=== PATIENT | male | born 1980 | race Two or more races ===

== ENCOUNTER 2021-03-04 00:57 | Emergency (ER) | payer OTHER ==
[~2021-03-04] VITALS: Ht 177.8 cm; Wt 102.9 kg
--- NOTE | 2021-03-04 01:03 | PHYS DOC ---
Past History Past Medical History: No Pertinent History Additional Past Surgical Histo: R shoulder, R elbow, L achilles Smoking: Non-smoker Alcohol Use: None Drug Use: None General Adult EDM: Chief Complaint: COVID HPI: HPI: 40-year-old male who was recently diagnosed with COVID-19 02/27/2021 presents with several day history of viral type symptoms including generalized malaise, body aches, and cough. Patient reports he has problems sleeping at night due to his discomfort. Patient reports family members also with COVID-19. Patient does report an episode of vomiting and some diarrhea. Patient reports has problems sleeping at night secondary to discomfort. Patient has been using over -the-counter ibuprofen and Tylenol for pain and discomfort. Reports currently has not been helping. Denies shortness of air. Review of Systems: Review of Systems: Constitutional: Denies fever; reports generalized malaise, body aches, and fatigue Eyes: Denies redness or eye pain HENT: Reports nasal congestion; denies sore throat Respiratory: Reports cough; denies shortness of breath Cardiovascular: Denies chest pain or palpitations GI: Denies abdominal pain; reports nausea, vomiting, and diarrhea : Denies dysuria or hematuria Musculoskeletal: Denies back pain or joint pain Integument: Denies rash or skin lesions Neurologic: Denies headache, focal weakness or sensory changes Complete systems were reviewed and found to be within normal limits, except as documented in this note. Physical Exam: PE: Constitutional: Well developed, well nourished, no acute distress, non-toxic appearance HENT: Normocephalic, atraumatic, TMs bilaterally clear, sinus congestion noted Eyes: Conjunctiva normal, no discharge Neck: Normal range of motion, supple, no meningeal signs Lungs & Thorax: No respiratory distress, equal chest rise and fall Abdomen: Soft, no tenderness, no guarding/rebound tenderness/distention Skin: Warm, dry, no erythema, no rash Extremities: Bilateral lower extremity tenderness without swelling or edema, ROM intact Neurologic: Alert and oriented X 3, normal motor function, normal sensory function, no focal deficits noted Psychologic: Affect normal, judgment normal EKG: EKG: [] Radiology/Procedures: Radiology/Procedures: PROCEDURE: CHEST AP ONLY XR CHEST 1V INDICATION: cough COMPARISON STUDY: None. FINDINGS: Lungs: Normal lung volume. No pulmonary mass or consolidation. The tracheobronchial tree and hilar structures are normal. Pleura: No pleural effusion or pneumothorax. Heart and Mediastinum: The cardiomediastinal silhouette is normal. The great vessels of the thorax are normal. IMPRESSION: No acute cardiopulmonary process. Electronically signed by: Robel Simons MD (03/04/2021 1:45 AM) [facility] Heart Score: C/O Chest Pain: N/A Course & Med Decision Making: Course & Med Decision Making Pertinent Imaging studies reviewed. (See chart for details) Patient with recent diagnosis of COVID-19 presents with symptoms consistent for his diagnosis. O2 sat stable. Patient is afebrile. Symptomatic treatment provided with oral steroid. Chest x-ray without acute finding. Will prescribe symptomatic treatment. Patient stable for discharge with outpatient follow-up with PCP. Discussed findings and plan with patient, who acknowledges understanding and agreement. COVID-19 CRITERIA: The patient was evaluated during the global COVID-19 pandemic, and that diagnosis was suspected/considered upon their initial presentation. Their evaluation, treatment and testing was consistent with current guidelines for patients who present with complaints or symptoms that may be related to COVID-19. Dragon Disclaimer: [employer] Disclaimer: This electronic medical record was generated, in whole or in part, using a voice recognition dictation system. Departure Departure: Impression: Primary Impression: COVID-19 Disposition: 01 HOME / SELF CARE / HOMELESS Condition: STABLE Referrals: NON,STAFF (PCP) Patient Instructions: Incentive Spirometer, Viral Syndrome Additional Instructions: You have been tested for or diagnosed with COVID-19. It is an infection caused by a new type of coronavirus. COVID-19 will cause cold-like or mild flu symptoms in most. It can cause more severe symptoms like problems breathing in some. There is no treatment for COVID-19. The body will clear the infection over time. Self-care will help to ease discomfort. Steps to Take: Self-Care Rest as needed. Healthy habits may help you feel better. Steps include: Choose healthy foods including fruits and vegetables. Drink water throughout the day. Get plenty of sleep each night. If you smoke, try to quit. It may ease breathing. Avoid alcohol. Keep Others Healthy The virus can spread to others. Droplets are released every time you sneeze or cough. The droplets can get into the mouth, nose, or eyes of people near you and lead to infection. To lower the chances of spreading COVID-19 to others: Stay at home until your doctor has said it is safe to leave. If you tested positive this will mean staying isolated until both of the following are true: At least 7 days have passed since the start of illness. You are free of fever for at least 72 hours without the use of medicine. During this time: - Avoid public areas, events, or transportation. Do not return to work or school until your doctor has said it is safe to do so. - Call ahead if you need to go to a medical center. Let them know you may have COVID-19. It will help them guide you where to go. They may also ask you to wear a facemask when you come to the office. - If you call for emergency medical services, let them know you may have COVID- 19. While at home: - Try to avoid close contact with others. Stay about 6 feet away. - If possible, spend most of your time in a separate room from others. - Use a face mask if you will be in close contact with others such as sharing a room or vehicle. - Have someone wipe down common surfaces in the home. Use household faculty neuropsychologist every day on areas like doorknobs, counters, or sinks. - Cough or sneeze into a tissue. Throw the tissue away right after use. If a tissue is not available, cough or sneeze into your elbow. - Wash your hands often. Wash them after sneezing or coughing. Use soap and water and wash for at least 20 seconds. Alcohol based hand card cleaner can be used if soap and water is not available. - Do not prepare food for others. Avoid sharing personal items like forks, spoons, or toothbrushes. - Avoid close contact with pets while you are sick. There is no evidence of the virus passing to pets. This is a safety step until more is known about this virus. Isolation can be frustrating. Social interaction can help. Keep in touch with friends and family through phone and tech options. You can still interact with others in your home, just keep a safe distance of about 6 feet. Follow-up: Your doctors office will check in with you to see if there are any changes in your health. You may be asked to keep track of symptoms to share with them. They will also let you know when you are clear to be in public again. Problems to Look Out For: Contact your doctor if your recovery is not going as you expect. Get emergency care if you have problems such as: - Trouble breathing - Nonstop chest pain or pressure - Changes in awareness, confusion, or problems waking - Lips or face have bluish color - Worsening of symptoms If you think you have an emergency, call for emergency medical services right away. As taken from [facility] Codeine Phosphate/Guaifenesin (Guaifen-Codeine 200-20 mg/10Ml) 10 Ml Liquid 10 ML PO Q6HRS PRN for COUGH, #150 LIQUID Prov: AMADEO DA SILVA DO 03/04/21 Benzonatate (TESSALON PERLE) 100 Mg Capsule 100 MG PO TID PRN PRN for COUGH, #30 CAP Prov: AMADEO DA SILVA DO 03/04/21 COVID-19 Assessment COVID-19 Patient Risks: Age 65 or older: No Sign of co-morbidity: No Exp to person + for COVID: Yes Exp to PUI: No Travel from affected area: No Lower respiratory symptoms: Yes Fever: No Other: Yes PPE Use: Full PPE with N95 mask or PAPR: Yes AMADEO DA SILVA DO Mar 04, 2021 01:03
[2021-03-04 01:11] VITALS: BP 144/99
[2021-03-04] MEDS ORDERED: DEXAMETHASONE 4 MG TABLET ONE (01:20)
[2021-03-04] MEDS: DEXAMETHASONE 4 MG TABLET PO ONE (01:24)
[2021-03-04] MEDS ORDERED: BENZ100C PO (01:30)
[2021-03-04] MEDS ORDERED: CODE10LI PO (01:30)
--- NOTE | 2021-03-04 01:47 | RAD ---
XR CHEST 1V INDICATION: cough COMPARISON STUDY: None. FINDINGS: Lungs: Normal lung volume. No pulmonary mass or consolidation. The tracheobronchial tree and hilar st ructures are normal. Pleura: No pleural effusion or pneumothorax. Heart and Mediastinum: The cardiomediastinal silhouette is normal. The great vessels of the thorax ar e normal. IMPRESSION: No acute cardiopulmonary process. Electronically signed by: Robel Simons MD (03/04/2021 1:45 AM) [facility]
== END 2021-03-04 01:41 | disposition home or self-care (01) ==
LOC: ER 00:57
DX: U07.1 COVID-19 (principal)
CPT/HCPCS: 71045; 99283; J8540

== ENCOUNTER 2021-03-08 14:19 | Emergency (ER) | payer OTHER ==
[~2021-03-08] VITALS: Ht 177.8 cm; Wt 102.9 kg
[~2021-03-08 14:19] MED LIST: BENZ100C PO; CODE10LI PO
[2021-03-08 14:35] VITALS: BP 154/77
--- NOTE | 2021-03-08 15:05 | PHYS DOC ---
Past History Past Medical History: No Pertinent History Additional Past Surgical Histo: R shoulder, R elbow, L achilles Smoking: Non-smoker Alcohol Use: None Drug Use: None General Adult EDM: Chief Complaint: COUGH HPI: HPI: 40-year-old male presents with increased cough. The patient was diagnosed with Covid-19 9 days ago. He was seen in this ER and his x-ray was clear at that time. Patient is concerned that his chest x-ray may have gotten worse since his cough is worse. All of 6 people in his household have COVID-19. The patient did not get vaccinated. Review of Systems: Review of Systems: Constitutional: Denies fever or chills Eyes: Denies change in visual acuity HENT: Denies nasal congestion or sore throat Respiratory: Cough without shortness of breath Cardiovascular: Denies chest pain or edema GI: Denies abdominal pain, nausea, vomiting, bloody stools or diarrhea : Denies dysuria Musculoskeletal: Denies back pain or joint pain Integument: Denies rash Neurologic: Denies headache, focal weakness or sensory changes Endocrine: Denies polyuria or polydipsia Lymphatic: Denies swollen glands Psychiatric: Denies depression or anxiety Allergies: Allergies: Allergies Coded Allergies Type Severity Reaction Last Updated Verified No Known Drug Allergies 03/04/21 No Physical Exam: PE: Constitutional: Well developed, well nourished, no acute distress, non-toxic merry earance. [] HENT: Normocephalic, atraumatic, bilateral external ears normal, oropharynx moist, no oral exudates, nose normal. [] Eyes: PERRLA, EOMI, conjunctiva normal, no discharge. [] Neck: Normal range of motion, no tenderness, supple, no stridor. [] Cardiovascular:Heart rate regular rhythm, no murmur [] Lungs & Thorax: Coughing. Bilateral breath sounds decreased but clear to auscultation [] Abdomen: Bowel sounds normal, soft, no tenderness, no masses, no pulsatile masses. [] Skin: Warm, dry, no erythema, no rash. [] Back: No tenderness, no CVA tenderness. [] Extremities: No tenderness, no cyanosis, no clubbing, ROM intact, no edema. [] Neurologic: Alert and oriented X 3, normal motor function, normal sensory function, no focal deficits noted. [] Psychologic: Affect normal, judgement normal, mood normal. [] EKG: EKG: [] Radiology/Procedures: Radiology/Procedures: [] Impressions: Single view chest dated 03/08/2021 3:44 PM: COMPARISON: 03/04/2021 Clinical Indication: Cough. Findings: Single upright portable exam of the chest was performed. Heart and mediastinal contours are stable. There is some prominent perihilar linear markings, similar slightly increased. No consolidation or pleural effusion. No pneumothorax. IMPRESSION: 1. Mild patchy perihilar linear opacities, nonspecific. Consider acute or chronic bronchial inflammatory process or early viral pneumonitis. Electronically signed by: Amadeo Landon MD (03/08/2021 3:45 PM) [id number] DICTATED AND SIGNED BY: AMADEO LANDON MD DATE: 03/08/21 1544 CC: DEBBY MCKEON DO; NON,STAFF ~MTH0 0 Heart Score: C/O Chest Pain: N/A Risk Factors: Risk Factors: DM, Current or recent (<one month) smoker, HTN, HLP, family history of CAD, obesity. Risk Scores: Score 0 - 3: 2.5% MACE over next 6 weeks - Discharge Home Score 4 - 6: 20.3% MACE over next 6 weeks - Admit for Clinical Observation Score 7 - 10: 72.7% MACE over next 6 weeks - Early Invasive Strategies Course & Med Decision Making: Course & Med Decision Making Pertinent Labs and Imaging studies reviewed. (See chart for details) The patient's x-ray is worse than previous. This is COVID-19 and it is variable. His oxygen saturation has been well above normal on room air. He do es not meet criteria for admission. I have advised supportive care at home. If his condition worsens he will return to the emergency room and may need to be admitted. He is stable for discharge at this time. [] Dragon Disclaimer: Dragon Disclaimer: This electronic medical record was generated, in whole or in part, using a voice recognition dictation system. Departure Departure: Impression: Primary Impression: COVID-19 Disposition: HOME / SELF CARE / HOMELESS Condition: STABLE Referrals: NON,STAFF (PCP) Additional Instructions: You have been tested for or diagnosed with COVID-19. It is an infection caused by a new type of coronavirus. COVID-19 will cause cold-like or mild flu symptoms in most. It can cause more severe symptoms like problems breathing in some. There is no treatment for COVID-19. The body will clear the infection over time. Self-care will help to ease discomfort. Steps to Take: Self-Care Rest as needed. Healthy habits may help you feel better. Steps include: Choose healthy foods including fruits and vegetables. Drink water throughout the day. Get plenty of sleep each night. If you smoke, try to quit. It may ease breathing. Avoid alcohol. Keep Others Healthy The virus can spread to others. Droplets are released every time you sneeze or cough. The droplets can get into the mouth, nose, or eyes of people near you and lead to infection. To lower the chances of spreading COVID-19 to others: Stay at home until your doctor has said it is safe to leave. If you tested positive this will mean staying isolated until both of the following are true: At least 7 days have passed since the start of illness. You are free of fever for at least 72 hours without the use of medicine. During this time: - Avoid public areas, events, or transportation. Do not return to work or school until your doctor has said it is safe to do so. - Call ahead if you need to go to a medical center. Let them know you may have COVID-19. It will help them guide you where to go. They may also ask you to wear a facemask when you come to the office. - If you call for emergency medical services, let them know you may have COVID- 19. While at home: - Try to avoid close contact with others. Stay about 6 feet away. - If possible, spend most of your time in a separate room from others. - Use a face mask if you will be in close contact with others such as sharing a room or vehicle. - Have someone wipe down common surfaces in the home. Use household senior account representative every day on areas like doorknobs, counters, or sinks. - Cough or sneeze into a tissue. Throw the tissue away right after use. If a tissue is not available, cough or sneeze into your elbow. - Wash your hands often. Wash them after sneezing or coughing. Use soap and water and wash for at least 20 seconds. Alcohol based hand rack cleaner can be used if soap and water is not available. - Do not prepare food for others. Avoid sharing personal items like forks, spoons, or toothbrushes. - Avoid close contact with pets while you are sick. There is no evidence of the virus passing to pets. This is a safety step until more is known about this virus. Isolation can be frustrating. Social interaction can help. Keep in touch with friends and family through phone and tech options. You can still interact with others in your home, just keep a safe distance of about 6 feet. Follow-up: Your doctors office will check in with you to see if there are any changes in your health. You may be asked to keep track of symptoms to share with them. They will also let you know when you are clear to be in public again. Problems to Look Out For: Contact your doctor if your recovery is not going as you expect. Get emergency care if you have problems such as: - Trouble breathing - Nonstop chest pain or pressure - Changes in awareness, confusion, or problems waking - Lips or face have bluish color - Worsening of symptoms If you think you have an emergency, call for emergency medical services right away. As taken from [facility] DEBBY MCKEON DO Mar 08, 2021 15:05
--- NOTE | 2021-03-08 15:48 | RAD ---
Single view chest dated 03/08/2021 3:44 PM: COMPARISON: 03/04/2021 Clinical Indication: Cough. Findings: Single upright portable exam of the chest was performed. Heart and mediastinal contours are stable. T here is some prominent perihilar linear markings, similar slightly increased. No consolidation or ple ural effusion. No pneumothorax. IMPRESSION: 1. Mild patchy perihilar linear opacities, nonspecific. Consider acute or chronic bronchial inflammat ory process or early viral pneumonitis. Electronically signed by: Thomas Landon MD (03/08/2021 3:45 PM) [id number]
== END 2021-03-08 17:04 | disposition home or self-care (01) ==
LOC: ER 14:19
DX: U07.1 COVID-19 (principal)
CPT/HCPCS: 71045; 99283